=== PATIENT | female | born 1945 | race Caucasian/White ===

== ENCOUNTER 2017-03-13 07:45 | Inpatient (IN) | payer OTHER ==
[2017-03-05 10:14] VITALS: BMI 31.0
--- NOTE | 2017-03-05 11:01 | PAT Medication Instructions ---
Service Date Mar 05, 2017. Current Home Medication List Cholecalciferol (Vitamin D3), 2,000 UNITS PO QAM Fiber (Fiber Select Gummies), 1 TAB PO QPM Folic Acid (Folic Acid), 1 TAB PO QAM Levothyroxine Sodium (Levothyroxine Sodium), 1 TAB PO QAM Multiple Vitamin (Multi Vitamin), 1 TAB PO QAM Probiotic Product (Probiotic), 1 TAB PO QPM Ranitidine Hcl (Zantac), 1 TAB PO QAM Sennosides-Docusate Sodium (Stool Softener), 1 TAB PO QPM Medication Instructions For Your Scheduled Surgery - Hold the following medications the morning of surgery: Multiple Vitamin (Multi Vitamin), 1 TAB PO QAM Ranitidine Hcl (Zantac), 1 TAB PO QAM Folic Acid (Folic Acid), 1 TAB PO QAM Cholecalciferol (Vitamin D3), 2,000 UNITS PO QAM - Take the following medications the morning of surgery with a sip of water: Levothyroxine Sodium (Levothyroxine Sodium), 1 TAB PO QAM - Take the following medications as scheduled the night before surgery: Sennosides-Docusate Sodium (Stool Softener), 1 TAB PO QPM Probiotic Product (Probiotic), 1 TAB PO QPM Fiber (Fiber Select Gummies), 1 TAB PO QPM If you have any questions please call us at [phone] or [phone] or [phone]
[2017-03-05 11:37] LABS: BASO % 0.4 %; BASO ABS # 0.03 K/uL (0-0.2); COMPLETE YES; HEMATOCRIT 40.1 % (37-47); IG% 0.4 %; LYMPH % 18.4 %; LYMPH ABS # 1.47 K/uL (1.2-3.4); MEAN CELL VOLUME 87.6 fL (80-100); MEAN CORPUSCULAR HEMOGLOBIN 30.6 pg (25-34); MEAN CORPUSCULAR HGB CONC 34.9 g/dl (32-36); MEAN PLATELET VOLUME 9.9 fL (7.4-10.4); MONO % 6.3 %; NEUT % 73.5 %; PLATELET COUNT 184 K/uL (130-400); RED BLOOD COUNT 4.58 M/uL (4.2-5.4); WHITE BLOOD COUNT 7.97 K/uL (4.8-10.8)
[2017-03-05 11:39] LABS: URINE APPEARANCE CLEAR (CLEAR); URINE BILIRUBIN NEG (NEG); URINE COLOR YELLOW; URINE NITRITE NEG (NEG); URINE PH 5.5 (4.5-7.5); URINE SPECIFIC GRAVITY 1.014 (1.000-1.030); UROBILINOGEN NEG (NEG); ZZUR CULT IF INDIC CLEAN CATCH NO
--- NOTE | 2017-03-05 11:40 | DIAGNOSTIC IMAGING REPORT ---
CHEST PREADMISSION(PA/LAT) HISTORY: Preop. COMPARISON: None. FINDINGS: Small linear density at the left lung base favors subsegmental atelectasis or scarring. The right lung is clear. The heart is normal in size. No pleural effusions. No pneumothorax. Cholecystectomy. IMPRESSION: No acute process. Electronically signed by: Josesito Thornton M.D. 03/05/2017 11:38 AM Dictated Date/Time: 03/05/2017 11:35 AM
[2017-03-05 11:42] LABS: MANUAL MICROSCOPIC REQUIRED? NO; REVIEW REQ? NO
[2017-03-05 11:45] LABS: CALCIUM 8.5 mg/dl (8.5-10.1); CREATININE 0.72 mg/dl (0.60-1.20); POTASSIUM 3.5 mmol/L (3.5-5.1)
[2017-03-05 11:46] LABS: INR 0.9 (0.9-1.1); PARTIAL THROMBOPLASTIN RATIO 1.1; PROTHROMBIN TIME (PATIENT) 10.1 SECONDS (9.0-12.0)
[2017-03-05 12:32] LABS: ESTIMATED AVERAGE GLUCOSE 103 mg/dl; HA1C FLAG Normal (Normal)
--- NOTE | 2017-03-11 19:30 | HISTORY & PHYSICAL EXAMINATION ---
DATE OF ADMISSION: 03/13/2017 HISTORY OF PRESENT ILLNESS: The patient presents as a very pleasant 71-year-old white female with complaints of ongoing pain attributable to her left knee. She has been unresponsive to conservative therapy, and presents for valgus alignment of left with severe end-stage DJD, bone on bone changes in lateral compartment with patellofemoral DJD. She has failed attempts at injections, viscosupplementation, corticosteroid injections, anti-inflammatories, relative rest, activity modification and presents for left total knee arthroplasty. FAMILY HISTORY: Otherwise unremarkable and noncontributory. SOCIAL HISTORY: The patient denies history of smoking, alcohol use or recreational drug use. PAST SURGICAL HISTORY: Otherwise unremarkable. ALLERGIES: None. REVIEW OF SYSTEMS: Otherwise, unremarkable. PAST MEDICAL HISTORY: Otherwise unremarkable. See history of present illness for pertinent positives. PHYSICAL EXAMINATION: HEENT: Otherwise unremarkable, atraumatic, normocephalic. HEART: Regular at 68 beats per minute. No murmurs are noted. LUNGS: Clear no rales rhonchi ABDOMEN: Soft, nontender, nondistended. Bowel sounds are present in all 4 quadrants. RECTAL: No rectal examination was performed. MUSCULOSKELETAL: Consistent with that of severe endstage degenerative joint disease with valgus alignment, lateral compartment DJD, patellofemoral DJD. ASSESSMENT AND PLAN: The patient has failed attempts at conservative management and presents for left total knee arthroplasty. Postoperative pain management, DVT prophylaxis, antibiotics as necessary. MTDD
[~2017-03-13] VITALS: Ht 162.6 cm; Wt 82.1 kg
[2017-03-13] VITALS (7 sets, daily range): BP systolic 114–149; BP diastolic 63–83; PULSE 50–71; TEMP 36.3–37.4; O2SAT 93–98; Ht 162.6 cm; Wt 82.1 kg
[2017-03-13] MEDS: TRANEXAMIC ACID INJ 1,000 MG in SODIUM CHLORIDE 0.9% 100ML 100 ML IV SCH ×2 (06:30→11:02)
--- NOTE | 2017-03-13 07:23 | History & Physical Bridge Note ---
H&P Re-Evaluation Bridge Note: I have examined the patient, reviewed the History & Physical and in the interval since the performance of the History & Physical I have noted the following changes of clinical significance: No changes noted
[~2017-03-13 07:45] MED LIST: ACETAMINOPHEN 500 MG TAB PO SCH; BUPIVACAINE 0.25% 30 ML VIAL ONE; BUPIVACAINE 0.5 % 5 MG/1 ML PF 10ML VIAL ONE; CEFAZOLIN 2000 MG/60 ML D5W 60 ML IV SCH; CELEBREX-ALLERGY NOTED TO ORDERED MEDICATION SCH; CeleBREX 200 MG CAP PO SCH; DEXAMETHASONE 4 MG TAB PO SCH; FAMOTIDINE 20 MG TAB PO SCH; FIBE1CHW PO; FLV400 PO; GABAPENTIN 300 MG CAP PO SCH; LACTATED RINGER'S 1000ML 1,000 ML IV SCH; LACTATED RINGER'S 1000ML IV SCH; LEVO75TA5 PO; METOCLOPRAMIDE HCL 10 MG TAB PO SCH; MISCCAP80 PO; MULT-1027 PO; RANI150T3 PO; ROPIVACAINE 5MG/ML 30 ML 150 MG, BUPIVACAINE/EPINEPHR 0.5% MPF 30 ML, KETOROLAC TROMETH... INFIL SCH; SENNTAB23 PO; VTMD1000 PO
[2017-03-13] MEDS ORDERED: CETI10TA84 PO (08:19)
[2017-03-13] MEDS ORDERED: EpHEDrine SULFATE INJ 50 MG/ML AMP IV PRN (08:45)
[2017-03-13] MEDS ORDERED: ATROPINE SULFATE 0.1 MG/ML 5ML SYR IV PRN (08:45)
[2017-03-13] MEDS ORDERED: ONDANSETRON INJ 2 MG/ML 2 ML VIAL IV PRN (08:45)
[2017-03-13] MEDS ORDERED: PROPOFOL IV EMULSION 10 MG/ML 20 ML VIAL IV ONE (09:19)
[2017-03-13] MEDS ORDERED: MIDAZOLAM HCL 1 MG/ML 2ML VIAL ONE ×3 (09:19→12:02)
[2017-03-13] MEDS ORDERED: LIDOCAINE HCL 2% 2 ML VIAL (20MG/ML) ONE (09:19)
[2017-03-13] MEDS ORDERED: ORTHO JOINT ANESTHETIC ONE (10:44)
[2017-03-13] MEDS ORDERED: POVIDONE-IODINE OP SOLN 30 ML BTL ONE (10:44)
[2017-03-13] MEDS ORDERED: BACITRACIN 50000 UNIT VIAL ONE (10:44)
[2017-03-13] MEDS ORDERED: EpHEDrine SULFATE 50MG/5ML SYR ONE (12:05)
--- NOTE | 2017-03-13 12:22 | [facility] Operative Report ---
Operative Report Operative Date Mar 13, 2017. Pre-Operative Diagnosis Severe End-Stage Degenerative Joint Disease Left Knee Post-Operative Diagnosis Severe End-Stage Degenerative Joint Disease Left Knee Procedure(s) Performed Left Total Knee Arthroplasty utilizing Miguel [employer] Nephew journey 2 nonlocked total knee arthroplasty size 4 femur 3 tibia 11 poly-[address] Francisco Javier Gutierrez Wire Stripper Surgeon(s) Lucy Delgadillo PA-C Estimated Blood Loss 5 cc Findings Severe end-stage DJD with hyperextension and valgus alignment left knee Specimens Permanent: A. Left Knee Bone and Tissue Complication(s) None Disposition Recovery Room / PACU Indications Patient presents after failing attempts at conservative management for her severe end-stage DJD valgus alignment recurvatum left total left knee for left total knee arthroplasty Description of Procedure After proper prepping and draping of the left lower extremity anterior midline incision was made over the region of the extensor extensor mechanism after meticulous hemostasis was obtained and maintained in subcutaneous tissues a medial parapatellar incision was made The patella was subluxed lateralward the medial lateral gutter were cleaned from any hypertrophic synovitis and scar tissue of the distal femoral block was placed and the distal femoral osteotomy cut was made subsequently the chamfers anterior and posterior osteotomy cuts were made utilizing the 4-in-1 block the tibia was subsequently subluxed anteriorward medial and ateral meniscal remnants were excised in their entirety remnants of the anterior and posterior cruciate ligaments were excised in their entirety excellent exposure of the proximal tibia was obtained the tibial osteotomy guide was placed on the proximal tibial osteotomy cut was made once again the knee was irrigated with copious amounts of sterile saline solution the patella was subsequently everted lateralward thickened scar tissue around the patella was removed the patella was subsequently cut utilizing a freehand technique and was drilled prepared for final preparation and placement of patella socially flexion-extension gaps were checked and the equal and symmetric trials were placed to the appropriate femoral and tibial trials with poly-spacer being placed for equal flexion and extension gaps and full range of motion including extension to 0 and flexion to 140 the trial components after having been taken to recovery range of motion was subsequently removed meticulous hemostasis was obtained and maintained subsequently a knee block injection of joint cocktail including ropivacaine 0.5% 150 mg. Bupivacaine 0.5 % epinephrine 1-200,030 mL's toradol 30 mg dexamethasone 4 mg ketamine 10 mg clonidine 100 micrograms normal saline solution 30 mg was infiltrated into the soft tissues of the posterior knee medial lateral gutters and periosteal synovium special attention was paid to protect neurovascular structures at all times subsequently trial components having been removed the knee was irrigated with sterile saline solution. debris was removed the proximal tibia was subsequently prepared and was made ready for the placement of the tibial component tibial component was also cemented and tamped into position the femoral component was subsequently placed and cemented in the position the patellar component was subsequently cemented in position because hemostasis once again obtained and maintained wound having been thoroughly irrigated with debridement and debridement lavage was performed as well as a medial parapatellar incision closed with #1 Vicryl in interrupted fashion subcutaneous was closed with #2 Vicryl skin was closed with skin clips. PA-C was necessary for prepping and drapping as well as wound closure of deep fascia Sub cutaneous tissue and skin and was necessary for the case. A sterile compressive dressing was placed patient was taken to recovery in stable condition of report dictated by Matt I attest to the content of the Intraoperative Record and any orders documented therein. Any exceptions are noted below. I attest to the content of the Intraoperative Record and any orders documented therein. Any exceptions are noted below.
[2017-03-13] MEDS ORDERED: SOD PHOSPHATE/SOD BIPHOSPHATE ENEMA 132 ML BTL PR PRN (13:00)
[2017-03-13] MEDS ORDERED: BISACODYL 10 MG SUPP PR PRN (13:00)
[2017-03-13] MEDS ORDERED: MAGNESIUM HYDROXIDE SUSP 30 ML UDC PO PRN (13:00)
[2017-03-13] MEDS ORDERED: CETIRIZINE HCL 10 MG TAB PO PRN (13:00)
[2017-03-13] MEDS ORDERED: ZOLPIDEM TARTRATE 5 MG TAB PO PRN (13:00)
--- NOTE | 2017-03-13 13:58 | DIAGNOSTIC IMAGING REPORT ---
LEFT KNEE 1 OR 2 VIEWS ROUTINE HISTORY: 71 years-old Female AP/LATERAL IN PACU LEFT KNEE status post left total knee arthroplasty. COMPARISON: None available. TECHNIQUE: 2 views of the left knee. FINDINGS: There has been recent left total knee arthroplasty with patellar resurfacing. No periprosthetic fracture or malalignment. Surgical drain is in place as well as expected postsurgical soft tissue swelling and deep tissue air. IMPRESSION: Status post left knee total joint arthroplasty and patellar resurfacing without complication. The above report was generated using voice recognition software. It may contain grammatical, syntax or spelling errors. Electronically signed by: Santo Simmons M.D. 03/13/2017 1:57 PM Dictated Date/Time: 03/13/2017 1:56 PM
--- NOTE | 2017-03-13 14:03 | Anesthesiology Progress Note ---
Anesthesia Post Op Note Date & Time Mar 13, 2017 at 14:03 Vital Signs Pain Intensity: 0 Vital Signs Past 12 Hours Date Time Temp Pulse Resp B/P (MAP) Pulse Ox O2 Delivery O2 Flow Rate FiO2 03/13/17 13:35 50 14 112/59 97 Nasal Cannula 2 03/13/17 13:25 54 12 109/51 99 Nasal Cannula 2 03/13/17 13:15 53 16 111/57 100 Nasal Cannula 2 03/13/17 13:05 51 15 111/62 100 Nasal Cannula 2 03/13/17 12:55 54 12 107/51 99 Nasal Cannula 2 03/13/17 12:48 36.7 70 16 102/56 98 Nasal Cannula 2 03/13/17 08:10 36.5 53 18 149/63 97 Room Air Notes Mental Status: alert / awake / arousable, participated in evaluation Pt Amnestic to Procedure: Yes Nausea / Vomiting: adequately controlled Pain: adequately controlled Airway Patency, RR, SpO2: stable & adequate BP & HR: stable & adequate Hydration State: stable & adequate Neuraxial Anesthesia: was administered, sensory block is resolving Anesthetic Complications: no major complications apparent
[2017-03-13] MEDS: D5W AND 1/2NSS + 20MEQ KCL 1,000 ML IV SCH (15:38)
[2017-03-13] MEDS: ACETAMINOPHEN IV 1,000 MG in EMPTY BAG 0 ML IV SCH (16:45)
[2017-03-13] MEDS: KETOROLAC TROMETHAMINE 15 MG/ML VIAL IV. SCH (18:26)
[2017-03-13] MEDS: CEFAZOLIN IV 2,000 MG in DEXTROSE 5% 50ML 50 ML IV SCH (20:11)
[2017-03-13] MEDS: LACTOBACILLUS ACIDOPHILUS (FLORANEX) TAB PO SCH (20:56)
[2017-03-13] MEDS: ASPIRIN 81 MG ECTAB PO SCH (20:56)
[2017-03-13] MEDS: DOCUSATE SODIUM/SENNA 50/8.6MG TAB PO SCH (20:57)
[2017-03-13] MEDS: TAPENTADOL ER 50 MG TABCR PO SCH (21:00)
[2017-03-14] MEDS: D5W AND 1/2NSS + 20MEQ KCL 1,000 ML IV SCH ×2 (01:04→11:18)
[2017-03-14] MEDS: KETOROLAC TROMETHAMINE 15 MG/ML VIAL IV. SCH ×3 (01:05→11:23)
[2017-03-14] MEDS: ACETAMINOPHEN IV 1,000 MG in EMPTY BAG 0 ML IV SCH (01:08)
[2017-03-14 03:23] VITALS: BP 110/63; PULSE 46; TEMP 36.6; O2SAT 94
[2017-03-14] MEDS: CEFAZOLIN IV 2,000 MG in DEXTROSE 5% 50ML 50 ML IV SCH (04:13)
[2017-03-14] MEDS: LEVOTHYROXINE 75 MCG TAB PO SCH (05:41)
[2017-03-14 07:19] VITALS: BP 148/80; PULSE 52; TEMP 36.4; O2SAT 96
[2017-03-14 07:27] LABS: HEMATOCRIT 35.8 % (37-47); MEAN CELL VOLUME 88.8 fL (80-100); MEAN CORPUSCULAR HEMOGLOBIN 30.8 pg (25-34); MEAN CORPUSCULAR HGB CONC 34.6 g/dl (32-36); PLATELET COUNT 192 K/uL (130-400); RED BLOOD COUNT 4.03 M/uL (4.2-5.4); WHITE BLOOD COUNT 12.44 K/uL (4.8-10.8)
[2017-03-14 07:55] LABS: BUN/CREATININE RATIO 15.2 (10-20); CALCIUM 8.5 mg/dl (8.5-10.1); CREATININE 0.82 mg/dl (0.60-1.20); POTASSIUM 3.9 mmol/L (3.5-5.1)
--- NOTE | 2017-03-14 08:12 | Orthopedic Progress Note ---
Orthopedic Progress Note Date of Service Mar 14, 2017. Subjective Post OP Day: 1 Reports: feeling well, Denies: chest pain, SOB, nausea / vomiting, light headedness, calf pain Objective calves soft nontender, N/V intact, dressing C/D/I, A&O x3, toes mobile, hemovac drainage (125/180cc per shift) Date Time Temp Pulse Resp B/P (MAP) Pulse Ox O2 Delivery O2 Flow Rate FiO2 03/14/17 07:19 36.4 52 17 148/80 (102) 96 Room Air 03/14/17 03:23 36.6 46 16 110/63 (79) 94 Room Air 03/14/17 01:00 Room Air 03/13/17 22:50 36.6 50 16 119/79 (92) 98 Room Air 03/13/17 19:14 37.0 71 17 130/78 (95) 93 Room Air 03/13/17 17:40 37.4 60 16 133/83 (100) 98 Nasal Cannula 2.0 03/13/17 16:45 Nasal Cannula 2.0 03/13/17 16:39 36.3 58 16 114/72 (86) 96 Nasal Cannula 2.0 03/13/17 15:40 36.5 56 16 121/74 (90) 98 Nasal Cannula 1.0 03/13/17 15:10 36.3 58 16 138/76 (96) 98 Nasal Cannula 2.0 03/13/17 14:40 Nasal Cannula 2.0 03/13/17 14:15 60 14 130/62 99 Nasal Cannula 2 03/13/17 14:05 52 13 124/63 97 Nasal Cannula 2 03/13/17 13:55 36.6 50 13 115/62 98 Nasal Cannula 2 03/13/17 13:45 46 12 124/54 97 Nasal Cannula 2 03/13/17 13:35 50 14 112/59 97 Nasal Cannula 2 03/13/17 13:25 54 12 109/51 99 Nasal Cannula 2 03/13/17 13:15 53 16 111/57 100 Nasal Cannula 2 03/13/17 13:05 51 15 111/62 100 Nasal Cannula 2 03/13/17 12:55 54 12 107/51 99 Nasal Cannula 2 03/13/17 12:48 36.7 70 16 102/56 98 Nasal Cannula 2 Laboratory Results 24 Hours: Test 03/14/17 07:02 Hematocrit 35.8 % Hemoglobin 12.4 g/dL Assessment & Plan Assessment: POD#1 SP LEFT TKA Inhouse Planning Pain Management: PO Tylenol (NOT AN ACTUAL TYLENOL ALLERGY. ONLY WHEN COMBINED WITH OPIOIDS.), other (NUCYNTA) DVT Prophylaxis: TEDs, SCDs, ASA Discharge Planning Discharge Planning: home with home health
--- NOTE | 2017-03-14 08:15 | Discharge Instructions ---
Discharge Instructions Date of Service Mar 14, 2017. Admission Reason for Admission: Left Knee Osteoarthritis Discharge Discharge Diagnosis / Problem: SP LEFT TKA Discharge Goals Goal(s): Decrease discomfort, Improve function, Increase independence Activity Recommendations Activity Limitations: per Instructions/Follow-up section . Instructions / Follow-Up Instructions / Follow-Up ACTIVITY RECOMMENDATIONS: SELF CARE INSTRUCTIONS AFTER TOTAL KNEE REPLACEMENT A. You may need to continue a physical therapy program after discharge from the hospital. There are several options available to you. Your doctor will assist you in selecting the best one for you. 1. An out-patient facility 2 to 3 times a week for therapy or home therapy. 2. Continue working on all exercises taught to you in the hospital. Your goals should be to increase bending of your knee to 90 degrees and beyond and to fully straighten your knee. B. You may progress at your own pace from walking with a walker or crutches to a cane; then to no assistive devices. C. Make walking a part of your daily routine. Be up as much as comfortable with rest periods throughout the day. Rest with leg elevation is very important. Use the ice wrap frequently for the first 3-4 weeks. D. There are no restrictions on activities. You may ride in a car, shop, participate in pearl glue operator and all social activities. E. Wear the long elastic stockings (BIBIANA hose) 20 hours a day for 2 weeks after surgery. They can be removed several times a day for laundering and for a bath. F. You may shower, no tub baths until cleared by your doctor. SPECIAL CARE INSTRUCTIONS: VERY IMPORTANT TO READ AND REVIEW A. There are a few signs you need to watch for after you are home. Call [facility] if you notice any of the followin. Increased severe knee pain. Some pain is expected especially when you exercise. 2. Increased swelling in your leg or knee; pain or swelling of the calf muscle in either lower leg. 3. Any fluid drainage from the incision. 4. Shortness of breath or chest pain. B. Please call [facility] at if you have any concerns or questions about your operation or recovery. The doctor or his nurse will return your call promptly. C. You must take antibiotics before dental work, bladder, bowel or other surgery. Your doctor will provide you with a permanent care to carry describing this precaution. IMPORTANT: * REMEMBER TO TAKE ASPIRIN, 81 MG, TWICE DAILY FOR 4 WEEKS UNLESS OTHERWISE DIRECTED. THIS IS YOUR BLOOD THINNER. * HIGH RISK PATIENTS MAY BE PRESCRIBED A STRONGER BLOOD THINNER. THIS WILL BE PROVIDED AT DISCHARGE. * CALL IF INCREASED PAIN, REDNESS, DRAINAGE OR FEVER GREATER THAT 101. * WEAR BIBIANA HOSE 20 HOURS PER DAY FOR 2 WEEKS. DERMABOND Prineo- This is a mesh tape dressing that is covered with glue. It should remain in place until the incision is properly healed, usually 10-14 days. This dressing is designed to naturally slough off. You may trim the excess mesh tape as it peels off. Incision may be briefly wet in a shower. Dry immediately by blotting with a clean, dry towel. Do not bath or swim until instructed by your doctor. Do not scratch, rub, or pick at the dressing. Do not apply any topical ointments or lotions until dressing is completely removed and/or instructed by your doctor. There may be a small piece of suture material at one end of your incision. Do not pull or trim this. If it is bothersome or catching on clothing, you may cover it with a band-aid. FOLLOW UP VISIT: If appointment is not already scheduled: Please call [facility] to make a follow-up appointment for 2 weeks after your surgery at . Current Hospital Diet Patient's current hospital diet: Gluten Free Diet Discharge Diet Recommended Diet: Regular Diet Procedures Procedures Performed: Left Total Knee Arthroplasty utilizing Miguel & Nephew journey 2 nonlocked total knee arthroplasty size 4 femur 3 tibia 11 poly-29 oval patella Pending Studies Studies pending at discharge: no Laboratory Results Hemoglobin A1c Test 03/05/17 11:10 Range/Units Estimated Average Glucose 103 mg/dl Hemoglobin A1c 5.2 4.5-5.6 % Medical Emergencies . Who to Call and When: Medical Emergencies: If at any time you feel your situation is an emergency, please call 911 immediately. . Non-Emergent Contact Non-Emergency issues call your: Surgeon . "Provider Documentation" section prepared by Lucy Wright. . VTE Core Measure Inpt VTE Proph given/why not?: Other Anticoagulation, T.E.D. Stockings, SCD's [place] Drug Monitoring Program Search Results: patient reviewed within database, no issues identified
[2017-03-14] MEDS: ASPIRIN 81 MG ECTAB PO SCH ×2 (09:02→20:42)
[2017-03-14] MEDS: MULTIVITAMIN TAB PO SCH (09:02)
[2017-03-14] MEDS: PANTOprazole SOD 40 MG TAB PO SCH (09:02)
[2017-03-14] MEDS: FoLIC ACID TAB 400 MCG TAB PO SCH (09:02)
[2017-03-14] MEDS: RANITIDINE HCL 150 MG TAB PO SCH (09:03)
[2017-03-14] MEDS: TAPENTADOL ER 50 MG TABCR PO SCH ×2 (09:05→20:43)
[2017-03-14 11:05] VITALS: BP 146/83; PULSE 48; TEMP 36.7; O2SAT 99
[2017-03-14] MEDS: ACETAMINOPHEN 500 MG TAB PO SCH ×2 (13:44→22:10)
[2017-03-14] MEDS: MoRPHine SULFATE 4 MG/ML 1 ML CARP\\VIAL IV PRN (17:06)
[2017-03-14] MEDS: ONDANSETRON INJ 2 MG/ML 2 ML VIAL IV PRN (18:33)
[2017-03-14] MEDS: LACTOBACILLUS ACIDOPHILUS (FLORANEX) TAB PO SCH (21:38)
[2017-03-14 23:10] VITALS: BP 144/69; PULSE 56; TEMP 36.9; O2SAT 98
[2017-03-15] MEDS: ACETAMINOPHEN 500 MG TAB PO SCH ×3 (00:09→23:14)
[2017-03-15] MEDS: DOCUSATE SODIUM/SENNA 50/8.6MG TAB PO SCH ×2 (00:10→20:46)
[2017-03-15] MEDS: LEVOTHYROXINE 75 MCG TAB PO SCH (05:27)
[2017-03-15 06:00] VITALS: BP 118/54; PULSE 50; TEMP 36.5; O2SAT 96
[2017-03-15] MEDS: ONDANSETRON INJ 2 MG/ML 2 ML VIAL IV PRN ×3 (06:40→19:12)
[2017-03-15] MEDS: MoRPHine SULFATE 4 MG/ML 1 ML CARP\\VIAL IV PRN (06:41)
[2017-03-15] MEDS: RANITIDINE HCL 150 MG TAB PO SCH (07:35)
[2017-03-15] MEDS: MULTIVITAMIN TAB PO SCH (07:37)
[2017-03-15] MEDS: FoLIC ACID TAB 400 MCG TAB PO SCH (07:37)
[2017-03-15] MEDS: PANTOprazole SOD 40 MG TAB PO SCH (07:38)
--- NOTE | 2017-03-15 07:39 | Orthopedic Progress Note ---
Orthopedic Progress Note Date of Service Mar 15, 2017. Subjective Post OP Day: 2 Reports: feeling well, Denies: complaints, chest pain, SOB, nausea / vomiting, light headedness, calf pain Objective calves soft nontender, N/V intact, capillary refill less than 2 sec., incision C /D/I, A&O x3, toes mobile Date Time Temp Pulse Resp B/P (MAP) Pulse Ox O2 Delivery O2 Flow Rate FiO2 03/15/17 06:00 36.5 50 16 118/54 (75) 96 Room Air 03/14/17 23:45 Room Air 03/14/17 23:10 36.9 56 16 144/69 (94) 98 Room Air 03/14/17 16:10 Room Air 03/14/17 11:05 36.7 48 18 146/83 (104) 99 Room Air Assessment & Plan Assessment: POD#2 SP LEFT TKA plan for d/c home with HHPT after PT today Discharge Planning Discharge Planning: home with home health DVT Prophylaxis: TEDs, SCDs, ASA
[2017-03-15] MEDS ORDERED: ASPEC81 PO (07:42)
[2017-03-15] MEDS ORDERED: NCYSR50 PO (07:42)
[2017-03-15] MEDS ORDERED: ONDA8TAB6 PO (07:42)
[2017-03-15] MEDS ORDERED: NCY50 PO (07:42)
[2017-03-15] MEDS ORDERED: ACET-24 PO (07:42)
[2017-03-15] MEDS: TAPENTADOL ER 50 MG TABCR PO SCH ×2 (07:46→20:46)
[2017-03-15] MEDS: ASPIRIN 81 MG ECTAB PO SCH ×2 (08:52→20:46)
[2017-03-15 09:15] VITALS: BP 118/54; PULSE 50; TEMP 36.5; O2SAT 96
[2017-03-15] MEDS: MoRPHine SULFATE 2 MG/ML CARP IV PRN ×3 (13:33→19:07)
[2017-03-15 15:56] VITALS: BP 119/67; PULSE 51; TEMP 36.7; O2SAT 100
[2017-03-15 19:50] VITALS: BP 142/65; PULSE 59; O2SAT 100
[2017-03-15] MEDS ORDERED: NURSING VERBAL MED ORDER ONE (20:15)
[2017-03-15] MEDS ORDERED: KETOROLAC TROMETHAMINE 15 MG/ML VIAL IV. ONE (20:30)
[2017-03-15] MEDS ORDERED: HYDROmorphone INJ 0.5 MG/0.5 ML SYR IV PRN (20:30)
[2017-03-15] MEDS: LACTOBACILLUS ACIDOPHILUS (FLORANEX) TAB PO SCH (20:47)
[2017-03-15 22:53] VITALS: BP 110/63; PULSE 57; TEMP 36.9; O2SAT 99
[2017-03-16] MEDS: LEVOTHYROXINE 75 MCG TAB PO SCH (06:10)
[2017-03-16] MEDS: ACETAMINOPHEN 500 MG TAB PO SCH ×3 (06:10→22:46)
[2017-03-16 06:58] VITALS: BP 133/70; PULSE 55; TEMP 36.8; O2SAT 100
--- NOTE | 2017-03-16 07:40 | Orthopedic Progress Note ---
Orthopedic Progress Note Date of Service Mar 16, 2017. Subjective Post OP Day: 3 Reports: feeling well, Denies: chest pain, SOB, nausea / vomiting, light headedness, calf pain Additional Notes: COMPLAINING OF HEARTBURN. NORMALLY TAKES HER ZANTAC IN THE AM. EATING CRACKERS NOW. ALSO CONCERNED ABOUT NOT HAVING BM X 2 DAYS. COMPLAINING OF HEADACHE. Objective calves soft nontender, N/V intact, incision C/D/I, A&O x3, toes mobile MILD ECCHYMOSIS AROUND THE INCISION. Date Time Temp Pulse Resp B/P (MAP) Pulse Ox O2 Delivery O2 Flow Rate FiO2 03/16/17 06:58 36.8 55 18 133/70 (91) 100 Room Air 03/16/17 00:30 Room Air 03/15/17 22:53 36.9 57 16 110/63 (79) 99 Room Air 03/15/17 19:50 59 142/65 (90) 100 Room Air 03/15/17 16:20 Room Air 03/15/17 15:56 36.7 51 18 119/67 (84) 100 Room Air 03/15/17 09:15 36.5 50 16 96 Room Air Assessment & Plan Assessment: POD#3 SP LEFT TKA plan for d/c home with HHPT after PT today if improved. Plan: DISCUSSED BOWEL REGIMEN. GOING TO ADD SOME MIRALAX. LIMITED PAIN MANAGEMENT OPTIONS JUST HAD ZANTAC, WILL NEED TO MONITOR AND SEE IF THIS RELIEVES HER HEARTBURN. Inhouse Planning Pain Management: PO Tylenol (NOT AN ACTUAL TYLENOL ALLERGY. ONLY WHEN COMBINED WITH OPIOIDS.), other (NUCYNTA) DVT Prophylaxis: TEDs, SCDs, ASA Discharge Planning Discharge Planning: home with home health DVT Prophylaxis: TEDs, SCDs, ASA
[2017-03-16] MEDS: TAPENTADOL ER 50 MG TABCR PO SCH (07:49)
[2017-03-16] MEDS: ONDANSETRON INJ 2 MG/ML 2 ML VIAL IV PRN ×2 (07:49→12:20)
[2017-03-16] MEDS: PANTOprazole SOD 40 MG TAB PO SCH (07:52)
[2017-03-16] MEDS: RANITIDINE HCL 150 MG TAB PO SCH (07:52)
[2017-03-16] MEDS: MULTIVITAMIN TAB PO SCH (07:53)
[2017-03-16] MEDS: ASPIRIN 81 MG ECTAB PO SCH ×2 (07:53→21:49)
[2017-03-16] MEDS: FoLIC ACID TAB 400 MCG TAB PO SCH (07:53)
[2017-03-16] MEDS: POLYETHYLENE (MIRALAX) 17 GM PACK PO SCH (08:29)
[2017-03-16] MEDS ORDERED: MoRPHine SULFATE 2 MG/ML CARP IV PRN (14:15)
[2017-03-16] MEDS ORDERED: KETOROLAC TROMETHAMINE 15 MG/ML VIAL IV. PRN (14:15)
[2017-03-16] MEDS ORDERED: MoRPHine SULFATE 4 MG/ML 1 ML CARP\\VIAL IV PRN (14:15)
[2017-03-16 15:03] VITALS: BP 140/62; PULSE 72; TEMP 36.8; O2SAT 95
--- NOTE | 2017-03-16 15:40 | ORTHOPEDIC PROGRESS NOTE ---
DATE: 03/16/2017 DATE: 03/16/2017 SUBJECTIVE: I arrived to see the patient this afternoon at 3:10 p.m. due to the fact that she had been having some pain control issues and a migraine headache. Upon walking into the room, she is sitting up in bed in a darkened room. However, she is looking very pleasant and states that her migraine is much better at this point in time and her knee pain is under control. After discussing her medications, she feels that most pain medications that she is going to be getting is going to cause her problems that she has had in the past. She has tried the morphine IV which was felt to cause her problems which was then switched to Dilaudid, which she felt caused more nausea and possibly her migraine headache. She has been taking Nucynta extended release versus instant release and she feels that any time she takes the oral pain medications she has problems. She states that she would like to hold off on a lot of the pain medications and see how she does. We discussed this earlier and she has had reactions to Percocet, hydrocodone, tramadol and the like and everything usually just ends up causing nausea and vomiting and more problems. OBJECTIVE: The patient is lying in bed. Her knee appears benign at this time other than her mild ecchymosis around the incision. Neurovascular is intact. She is having some pain in the posterior aspect of her knee, but it is controlled at this time per patient. ASSESSMENT: Left total knee arthroplasty, postoperative day 3 with associated nausea, vomiting, migraine headache, likely due to pain medication. PLAN: I sat down and discussed this with the patient in detail and plans at this time will be to leave her IV morphine as is for rescue dose in case of severe pain. We will hold off on any of her other oral medications including the Nucynta for moderate pain and will continue her Tylenol and Toradol which has been re-added to her pain regimen. She does not want anything else at this time for her migraine headache, which seems to be going away at this point in time. We will reassess her in the morning and see how she does and if she continues to remain with good pain control we will plan on sending her home. We discussed that she will not be able to home with p.o. Toradol and that she might likely only be able to take p.o. Tylenol. She understands this and is agreeable.
[2017-03-16 19:13] VITALS: TEMP 36.8
[2017-03-16] MEDS: DOCUSATE SODIUM/SENNA 50/8.6MG TAB PO SCH (22:47)
[2017-03-16] MEDS: LACTOBACILLUS ACIDOPHILUS (FLORANEX) TAB PO SCH (22:47)
[2017-03-16 23:29] VITALS: BP 120/72; PULSE 92; TEMP 37.4; O2SAT 94
[2017-03-17] MEDS: ACETAMINOPHEN 500 MG TAB PO SCH ×2 (05:39→14:25)
[2017-03-17] MEDS: LEVOTHYROXINE 75 MCG TAB PO SCH (06:37)
[2017-03-17 07:40] VITALS: BP 125/71; PULSE 72; TEMP 36.7; O2SAT 96
[2017-03-17] MEDS: PANTOprazole SOD 40 MG TAB PO SCH (08:03)
[2017-03-17] MEDS: MULTIVITAMIN TAB PO SCH (09:00)
[2017-03-17] MEDS: TAPENTADOL HCL 50 MG TAB PO PRN ×2 (09:28→14:31)
[2017-03-17] MEDS: ASPIRIN 81 MG ECTAB PO SCH (09:28)
[2017-03-17] MEDS: RANITIDINE HCL 150 MG TAB PO SCH (09:29)
--- NOTE | 2017-03-17 10:32 | Orthopedic Progress Note ---
Orthopedic Progress Note Date of Service Mar 17, 2017. Subjective Post OP Day: 4 Reports: feeling well Additional Notes: Having pain this AM and would like to try the regular Nucynta tablet today. Otherwise doing well. Objective calves soft nontender, N/V intact, incision C/D/I, A&O x3, toes mobile Date Time Temp Pulse Resp B/P (MAP) Pulse Ox O2 Delivery O2 Flow Rate FiO2 03/17/17 07:58 Room Air 03/17/17 07:40 36.7 72 17 125/71 (89) 96 Room Air 03/17/17 00:00 Room Air 03/16/17 23:29 37.4 92 15 120/72 (88) 94 Room Air 03/16/17 19:13 36.8 03/16/17 15:45 Room Air 03/16/17 15:03 36.8 72 18 140/62 (88) 95 Room Air Assessment & Plan Assessment: POD#4 SP LEFT TKA Plan: Will try Nucynta this AM. If tolerating, will plan for dc to home today. No BM yet but not uncomfortable; passing flatus. Bowel regimen ordered Follow for now. Inhouse Planning Pain Management: PO Tylenol (NOT AN ACTUAL TYLENOL ALLERGY. ONLY WHEN COMBINED WITH OPIOIDS.), other (NUCYNTA) DVT Prophylaxis: TEDs, SCDs, ASA Discharge Planning Discharge Planning: home with home health DVT Prophylaxis: TEDs, SCDs, ASA
[2017-03-17] MEDS: FoLIC ACID TAB 400 MCG TAB PO SCH (10:40)
[2017-03-17] MEDS: POLYETHYLENE (MIRALAX) 17 GM PACK PO SCH (10:40)
[2017-03-17 15:18] VITALS: BP 134/71; PULSE 68; TEMP 36.7; O2SAT 98
--- NOTE | 2017-03-22 07:49 | DISCHARGE SUMMARY ---
DISCHARGE DIAGNOSIS: Degenerative joint disease, left knee. SECONDARY DIAGNOSIS: None. CONSULTS: None. COMPLICATIONS: None. PROCEDURE: The patient underwent a left total knee arthroplasty by Dr. Gutierrez on 03/13/2017. BRIEF HISTORY OF PRESENT ILLNESS: Please see previously dictated history and physical. HOSPITAL SUMMARY: The patient was admitted on the above day for the above procedure. Procedure went without complication. Postop day 1, the patient was feeling well without complaints. She denied chest pain or shortness of breath. Vital signs were stable. She was afebrile. Dressing was clean, dry and intact. She was neurovascularly intact. Calves were soft and nontender. Hemoglobin was 12.4. The patient began physical therapy per protocol. Postop day 2, the patient continued to improve. She denied chest pain or shortness of breath. Vital signs were stable. She was afebrile. Dressing was clean, dry and intact. She was neurovascularly intact. Calves were soft and nontender. The patient continued to progress with therapy. Postop day 3, the patient was complaining of heartburn. She normally takes a Zantac in the a.m. I am also concerned about constipation. Vital signs were stable. She was afebrile. Dressing was clean, dry and intact. She was neurovascularly intact. Calves were soft and nontender. She has some mild ecchymosis around the incision. The patient added MiraLax to her bowel regimen. She did also give her Zantac this morning. She continued to progress with physical therapy. Later that day, the patient was seen by Mati for complaints of migraine. The patient felt that potentially her pain medications were causing her side effects. She was placed on Tylenol and Toradol. Postop day 4, the patient was having pain and was requesting her regular Nucynta tablet. Her migraine had improved. Otherwise, she was doing well. The incision was clean, dry and intact. She was neurovascularly intact. Calves are soft and nontender. The patient was feeling better and was discharged home later that day in stable condition. For further review, please see the chart. Lab, x-ray data and discharge instructions as per chart.
== END 2017-03-17 15:30 | disposition home health service (06) | DRG 470 ==
LOC: C.ACU 07:45 → C.3E 08:45 → ENRESERV 14:04
PROVIDERS: ADMIT Orthopaedic Surgery; ATTEND Orthopaedic Surgery
PROC: 0SRD0J9 Replacement of Left Knee Joint with Synthetic Substitute, Cemented, Open Approach (ICD-10-PCS; principal; 2017-03-13 10:30)
DX: M17.12 Unilateral primary osteoarthritis, left knee (principal); Z79.899 Other long term (current) drug therapy

== ENCOUNTER → 2017-03-30 | Outpatient (CLI) | payer OTHER ==
[~2017-03-30] MED LIST changes: +ACET-24 PO; -ACETAMINOPHEN 500 MG TAB PO SCH; +ASPEC81 PO; -BUPIVACAINE 0.25% 30 ML VIAL ONE; -BUPIVACAINE 0.5 % 5 MG/1 ML PF 10ML VIAL ONE; -CEFAZOLIN 2000 MG/60 ML D5W 60 ML IV SCH; -CELEBREX-ALLERGY NOTED TO ORDERED MEDICATION SCH; +CETI10TA84 PO; -CeleBREX 200 MG CAP PO SCH; -DEXAMETHASONE 4 MG TAB PO SCH; -FAMOTIDINE 20 MG TAB PO SCH; -GABAPENTIN 300 MG CAP PO SCH; -LACTATED RINGER'S 1000ML 1,000 ML IV SCH; -LACTATED RINGER'S 1000ML IV SCH; -METOCLOPRAMIDE HCL 10 MG TAB PO SCH; +NCY50 PO; +ONDA8TAB6 PO; -ROPIVACAINE 5MG/ML 30 ML 150 MG, BUPIVACAINE/EPINEPHR 0.5% MPF 30 ML, KETOROLAC TROMETH... INFIL SCH
--- NOTE | 2017-03-30 14:34 | DIAGNOSTIC IMAGING REPORT ---
LEFT LOWER EXTREMITY VENOUS DOPPLER CLINICAL HISTORY: Left calf pain. COMPARISON STUDY: No previous studies for comparison. TECHNIQUE: Sonography of the deep venous system of the left lower extremity was performed. Compression and augmentation were evaluated. FINDINGS: The left common femoral, superficial femoral and popliteal veins were compressible. Augmentation was normal. Flow was shown within the deep calf vessels. Note is made of a 3.9 x 2.1 x 1.9 cm complex abnormality with the left popliteal cyst fossa which suggests a complex popliteal cyst. IMPRESSION: 1. No evidence of deep venous thrombus within the left lower extremity. 2. 3.9 x 2.1 x 1.9 cm abnormality within the left popliteal fossa which favors a complex popliteal cyst. Electronically signed by: Gadiel Stapleton M.D. 03/30/2017 2:32 PM Dictated Date/Time: 03/30/2017 2:31 PM
== END | disposition home or self-care (01) ==
LOC: C.ULTRBC 13:28
PROVIDERS: ATTEND Orthopaedic Surgery
DX: M79.662 Pain in left lower leg (principal); R93.7 Abnormal findings on diagnostic imaging of other parts of musculoskeletal system